=== PATIENT | male | born 1970 | race Two or more races ===

== ENCOUNTER 2025-04-02 06:03 | Emergency (ER) | payer OTHER ==
[~2025-04-02] VITALS: Ht 182.9 cm; Wt 102.1 kg
[2025-04-02] MEDS ORDERED: DIPHENHYDRAMINE HCL 50 MG/ML VIAL 1ML IM ONE (09:00)
[2025-04-02] MEDS ORDERED: DEXAMETHASONE SODIUM PHOSPHATE 4 MG/ML VIAL IM ONE (09:15)
[2025-04-02] MEDS ORDERED: ZYRTEC10 MG PO (10:57)
== END 2025-04-02 11:04 | disposition home or self-care (01) ==
LOC: ER 06:26
DX: R21 Rash and other nonspecific skin eruption (principal); T78.40XA Allergy, unspecified, initial encounter